=== PATIENT | male | born 1995 | race Caucasian/White ===

== ENCOUNTER 2018-11-28 17:14 | Emergency (ER) | payer MEDICAID ==
[~2018-11-28] VITALS: Ht 180.3 cm; Wt 80.0 kg
[2018-11-28 18:27] VITALS: BP 136/73
== END 2018-11-28 18:31 | disposition home or self-care (01) ==
LOC: ER 17:26
DX: M25.561 Pain in right knee (principal); Z88.8 Allergy status to other drugs, medicaments and biological substances
CPT/HCPCS: 73564; 99283

== ENCOUNTER 2019-12-23 11:14 | Emergency (ER) | payer MEDICAID ==
[~2019-12-23] VITALS: Ht 180.3 cm; Wt 84.1 kg
[2019-12-23 11:22] VITALS: BP 130/58
[2019-12-23] MEDS ORDERED: HYDR-4383 PO ×2 (12:32→12:34)
== END 2019-12-23 12:50 | disposition home or self-care (01) ==
LOC: ER 11:15
DX: S83.91XA Sprain of unspecified site of right knee, initial encounter (principal); Z88.8 Allergy status to other drugs, medicaments and biological substances; Z79.899 Other long term (current) drug therapy; X50.1XXA Overexertion from prolonged static or awkward postures, initial encounter; Y93.89 Activity, other specified; Y92.89 Other specified places as the place of occurrence of the external cause; Y99.8 Other external cause status
CPT/HCPCS: 29505; 73564; 99283